=== PATIENT | female | born 1945 | race Caucasian/White ===

== ENCOUNTER → 2016-12-01 | Outpatient (CLI) | payer MEDICARE | LOC: GMAB 13:33 | PROVIDERS: ATTEND Family Medicine | DX: E11.21 Type 2 diabetes mellitus with diabetic nephropathy (principal); N39.0 Urinary tract infection, site not specified; D64.9 Anemia, unspecified; D50.8 Other iron deficiency anemias ==

== ENCOUNTER → 2016-12-29 | Outpatient (CLI) | payer MEDICARE | END | disposition home or self-care (01) | LOC: YCHH 12:43 | PROVIDERS: ATTEND Family Medicine | DX: D64.9 Anemia, unspecified (principal) ==

== ENCOUNTER → 2017-01-12 | Emergency (ER) | payer MEDICARE ==
[~2017-01-12] MED LIST: EPINEPHrine INJ 0.1 MG/ML 10 ML SYG IV ONE; SODIUM BICARBONATE SYRINGE 50 MEQ/50 ML SYG IV ONE; SODIUM CHLORIDE 0.9% 1000ML 1,000 ML IVS ONE
--- NOTE | 2017-01-12 08:58 | ED.PDOC ---
History of Present Illness - General Time Seen by Provider: 01/12/17 08:47 Source: patient Exam Limitations: no limitations - History of Present Illness Initial Comments: pt brought in by ems in code blue. intubated already. cpr in progress. iv in loeft wrist. already given 1 round of epi. PEA upon arrival. pale, fixed pupils at 5mm. no gag reflex. no sedatives given. et tube pulled back as was in right mainstem. good breath sounds after pulled back. ventilating easily. initial end tidal co2 at 20 up to 29 at one poiint during cpr. pulse ox initially not registering but up to 99% at one point. cpr continued from arrival to 837 am continuous. only pea on monitors. discussed with family at approx 830 am and discussed prognoisi given lack of response to cpr. family agreed to cease cpr in 5 min if no reponse. no response obtained. no neurological activity seen. no pulses palpable. no cardiac motion on US. pt given multiple rounds of epi and 1 round of bicarb. H/H adequate. rest of labs pending at time of cessation of the code. pt was awake and diaphoretic with severe chest pain radiating down to her abdomen upon arrival of ems. she quickly became nonresponsive after the iv was placed and she was intubated by ems at that time and pulse was soon lost after and compressions started by ems. I also did a brief less bertram 5 second cardiac echo at 15 min after arrival here and no cardiac motion was seen at that time either. suspect large MS vs aortic pathology. Timing/Duration: 1/2 hour Severity: severe Improving Factors: nothing Worsening Factors: nothing Associated Symptoms: chest pain, diaphoresis, shortness of breath Allergies/Adverse Reactions: Allergies Penicillins Allergy (Verified 03/09/13 07:49) Home Medications: Ambulatory Orders Allopurinol [Zyloprim] 300 mg PO DAILY 02/04/15 Citalopram Hydrobromide 40 mg PO DAILY 02/04/15 Diphenhydramine HCl 25 mg PO BEDTIME PRN 02/04/15 Furosemide [Lasix] 40 mg PO BID PRN 02/04/15 Gabapentin [Neurontin] 300 mg PO TID 02/04/15 HYDROcodone 10MG/APAP 325MG [[place] 10/325] 1 ea PO Q4H PRN 02/04/15 Insulin Aspart [Novolog] 25 unit SC TID 02/04/15 Insulin Detemir [Levemir] 20 unit SUBCU BID 02/04/15 Lisinopril 20 mg PO DAILY 02/04/15 Sulfamethoxazole-Trimethoprim [Bactrim Ds 800-160 mg] 1 tab PO BID 02/04/15 Review of Systems - Review of Systems Review of Systems: 01/12/17 08:58 prior to the pt coding reported to ems and family: Constitutional: States: diaphoresis EENTM: States: no symptoms reported Respiratory: States: short of breath Cardiology: States: chest pain Gastrointestinal/Abdominal: States: abdominal pain - upper Genitourinary: States: no symptoms reported Musculoskeletal: States: no symptoms reported Skin: States: no symptoms reported Neurological: States: anxiety Endocrine: States: excessive sweating All other Systems: No Change from Baseline Past Medical History (General) - Patient Medical History Hx Cardiac Disorders: No Hx Congestive Heart Failure: No Hx Hypertension: Yes Hx Diabetes: Yes Hx MRSA: No - Vaccination History Hx Influenza Vaccination: Yes - Social History Hx Alcohol Use: No Hx Substance Use: No Hx Physical Abuse: No Hx Emotional Abuse: No Family Medical History - Family History Father Family History: Unknown Physical Exam - Physical Exam General Appearance: Other - in full code. Eye Exam: bilateral other - fixed 5mm bilaterally. no active movemnt or blink Ears, Nose, Throat: other - et tube in place Neck: full range of motion, normal inspection Respiratory: lungs clear, normal breath sounds - while being bagged bilaterally after et tube pulled [id number], no accessory muscle use Cardiovascular/Chest: no edema, other - cpr in progress Peripheral Pulses: radial,right: 1+, radial,left: 1+, femoral,right: 2+, femoral ,left: 0, dorsalis pedis,right: 0 Gastrointestinal/Abdominal: other - obese, no palp mass, soft, multiple scars from surgeries. Rectal Exam: deferred Back Exam: normal inspection Extremity: normal range of motion - passively. 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 obvious pvd Neurologic: other - intubated with out sedatives and no spontaneous activity from the patient. Skin Exam: pallor Progress - Progress Progress: 01/12/17 09:03 all critical care time spent during cpr. Departure - Departure Clinical Impression: Cardiac arrest Disposition: Home Medications: Ambulatory Orders Allopurinol [Zyloprim] 300 mg PO DAILY 02/04/15 Citalopram Hydrobromide 40 mg PO DAILY 02/04/15 Diphenhydramine HCl 25 mg PO BEDTIME PRN 02/04/15 Furosemide [Lasix] 40 mg PO BID PRN 02/04/15 Gabapentin [Neurontin] 300 mg PO TID 02/04/15 HYDROcodone 10MG/APAP 325MG [[place] 10/325] 1 ea PO Q4H PRN 02/04/15 Insulin Aspart [Novolog] 25 unit SC TID 02/04/15 Insulin Detemir [Levemir] 20 unit SUBCU BID 02/04/15 Lisinopril 20 mg PO DAILY 02/04/15 Sulfamethoxazole-Trimethoprim [Bactrim Ds 800-160 mg] 1 tab PO BID 02/04/15
== END | disposition expired ==
LOC: ER 08:06
DX: I46.9 Cardiac arrest, cause unspecified (principal); E11.65 Type 2 diabetes mellitus with hyperglycemia; I10 Essential (primary) hypertension; Z79.899 Other long term (current) drug therapy; Z79.4 Long term (current) use of insulin
CPT/HCPCS: 80048; 82550; 82553; 84484; 85025; 85379; 85610; 85730; J7030